=== PATIENT | female | born 1960 | race Two or more races ===

== ENCOUNTER 2020-02-18 19:28 | Emergency (ER) | payer MEDICAID ==
[~2020-02-18] VITALS: Ht 170.2 cm; Wt 68.0 kg
--- NOTE | 2020-02-18 19:30 | NUR ---
ED Nurse Note: Pt brought in by ambulance 826 from home c/o abd pain with n/v since few hrs ago. Pt stated she last ate cheese and pain, n/v occured shortly after. pt is moaning and guarding site. changed into gown; attached to monitor. patient ao4 with acute distress; facial grimacing from pain. vitals stable. all safety measures met.
--- NOTE | 2020-02-18 19:34 | Emergency Room Report ---
History of Present Illness General Chief Complaint: Abdominal Pain Source: Patient Present Illness HPI Patient is a 59-year-old female brought in by EMS after increased lower abdominal pain. Onset of symptoms few hours prior to arrival. Reports having severe pain did not radiate. Denies any allergies or past medical history. Think she may have had an food poisoning. Denies any fever. Denies any diarrhea. Denies any prior surgery. Reports having alcohol use earlier in the day. Denies prior episodes of similar pain in the past. Allergies: Coded Allergies: No Known Allergies (Unverified , 02/18/20) COVID-19 Screening Contact w/high risk pt: No Experienced COVID-19 symptoms?: No COVID-19 Testing performed EXHIBIT DISPLAY REPRESENTATIVE: No Patient History Past Medical History: see triage record Last Menstrual Period: unk Reviewed Nursing Documentation: PMH: Agreed; PSxH: Agreed Nursing Documentation-PMH Past Medical History: No Stated History Review of Systems All Other Systems: negative except mentioned in HPI Physical Exam Vital Signs Date Time Temp Pulse Resp B/P (MAP) Pulse Ox O2 Delivery O2 Flow Rate FiO2 02/18/20 19:25 98.8 70 22 136/78 (97) 99 Room Air Sp02 EP Interpretation: reviewed, normal General Appearance: normal inspection, alert, moderate distress Head: atraumatic ENT: normal ENT inspection, hearing grossly normal, normal voice Neck: normal inspection, full range of motion, supple, no bony tend Respiratory: normal inspection, lungs clear, normal breath sounds, no respiratory distress, no retraction, no wheezing Cardiovascular #1: regular rate, rhythm, no edema Gastrointestinal: normal inspection, normal bowel sounds, non tender, soft, no guarding, no hernia Genitourinary: no CVA tenderness Musculoskeletal: normal inspection, back normal, normal range of motion Neurologic: alert, responsive, speech normal, normal inspection Psychiatric: normal inspection, judgement/insight normal, mood/affect normal Medical Decision Making ER Course Patient presented for abdominal pain. Differential diagnoses included ischemic bowel, appendicitis, perforated viscus, abdominal aortic aneurysm, inferior myocardial infarction, viral gastroenteritis among others.Because patient's complexity imaging studies, and laboratory testing ordered. Laboratory testing showed . Electrolytes Lipase was White blood count was CT of the abdomen pelvis showed: Laboratory testing was unremarkable. Patient appears to have some slight urinary infection was given IV Rocephin. Last Vital Signs Date Time Temp Pulse Resp B/P (MAP) Pulse Ox O2 Delivery O2 Flow Rate FiO2 02/18/20 19:25 98.8 70 22 136/78 (97) 99 Room Air Emile Machado MD Feb 18, 2020 19:34
[2020-02-18 19:45] VITALS: BP 136/78
[2020-02-18] MEDS ORDERED: Dicyclomine HCl 10mg/5ml oral soln ORAL ONE (19:45)
[2020-02-18] MEDS ORDERED: Ketorolac 30mg Inj IV ONE (19:45)
[2020-02-18] MEDS ORDERED: Mylanta II UD 30ml ORAL ONE (19:45)
[2020-02-18] MEDS ORDERED: Lidocaine 2% Visc 15ml soln ORAL ONE (19:45)
[2020-02-18] MEDS ORDERED: Omnipaque-300 100ml vial INJ PRN (19:45)
--- NOTE | 2020-02-18 19:45 | NUR ---
ED Nurse Note: iv access established. blood and urine collected; sent down to lab.
[2020-02-18 20:10] LABS: BASOPHILS % (AUTO) 0.7 % (0.0-2.0); EOSINOPHILS % (AUTO) 0.6 % (0.0-3.0); HEMATOCRIT 44.4 % (37.0-47.0); LYMPHOCYTES % (AUTO) 33.4 % (20.0-45.0); MEAN CORPUSCULAR VOLUME 93 FL (80-99); MONOCYTES % (AUTO) 5.3 % (1.0-10.0); PLATELET COUNT 249 K/UL (150-450); RED BLOOD COUNT 4.77 M/UL (4.20-5.40); RED CELL DISTRIBUTION WIDTH 12.4 % (11.6-14.8); WHITE BLOOD COUNT 5.8 K/UL (4.8-10.8)
[2020-02-18 20:15] LABS: APPEARANCE,URINE CLEAR; BILIRUBIN, URINE NEGATIVE (NEGATIVE); GLUCOSE, URINE (UA) NEGATIVE (NEGATIVE); KETONES,URINE 3+ (NEGATIVE); LEUKOCYTE ESTERASE ,URINE 1+ (NEGATIVE); NITRITE,URINE NEGATIVE (NEGATIVE); PH,URINE 5 (4.5-8.0); PROTEIN,URINE NEGATIVE (NEGATIVE); UROBILINOGEN,URINE NORMAL MG/DL (0.0-1.0)
[2020-02-18 20:16] LABS: COLOR,URINE YELLOW
[2020-02-18 20:18] LABS: ANION GAP 13 mmol/L (5-15); BLOOD UREA NITROGEN 15 mg/dL (7-18); CALCIUM 9.9 MG/DL (8.5-10.1); CARBON DIOXIDE 25 MMOL/L (21-32); CHLORIDE 102 MMOL/L (98-107); CREATININE 0.8 MG/DL (0.55-1.30); POTASSIUM 3.6 MMOL/L (3.5-5.1); SODIUM 140 MMOL/L (136-145)
[2020-02-18 20:27] LABS: ALANINE AMINOTRANSFERASE 33 U/L (12-78); ALBUMIN 4.1 G/DL (3.4-5.0); ALBUMIN/GLOBULIN RATIO 1.2 (1.0-2.7); ALKALINE PHOSPHATASE 74 U/L (46-116); ASPARTATE AMINO TRANSFERASE 22 U/L (15-37); BILIRUBIN,TOTAL 0.9 MG/DL (0.2-1.0)
--- NOTE | 2020-02-18 20:39 | NUR ---
ED Nurse Note: pt down to imaging via wheelchair with technology training associate.
[2020-02-18] MEDS ORDERED: cefTRIAXone 1 GM in NS 55 ML IVPB ONE (20:45)
--- NOTE | 2020-02-18 20:58 | NUR ---
ED Nurse Note: pt back from ct via wheelchair. reattached to monitor. initiated prescribed infusion; pt tolerating well. pt reports decrease of pain post analgesic admin.
--- NOTE | 2020-02-18 21:12 | Diagnostic Imaging Report ---
EXAM: CT Abdomen and Pelvis With Intravenous Contrast CLINICAL HISTORY: ABD PAIN TECHNIQUE: Axial computed tomography images of the abdomen and pelvis with intravenous contrast. CTDI is 4.2 mGy and DLP is 215.0 mGy-cm. One or more of the following dose reduction techniques were used: automated exposure control, adjustment of the mA and/or kV according to patient size, use of iterative reconstruction technique. COMPARISON: No relevant prior studies available. FINDINGS: Lung bases: Unremarkable. No mass. No consolidation. ABDOMEN: Liver: Unremarkable. No mass. Gallbladder and bile ducts: Unremarkable. No calcified stones. No ductal dilation. Pancreas: Unremarkable. No mass. No ductal dilation. Spleen: Unremarkable. No splenomegaly. Adrenals: Unremarkable. No mass. Kidneys and ureters: Unremarkable. No solid mass. No hydronephrosis. Stomach and bowel: large amount of retained stool throughout the colon. Negative for lower GI tract obstruction, pneumatosis or focal bowel wall thickening. PELVIS: Appendix: The appendix was not visualized. Bladder: Unremarkable. No mass. Reproductive: Unremarkable as visualized. ABDOMEN and PELVIS: Intraperitoneal space: Unremarkable. No free air. No significant fluid collection. Bones/joints: No acute fracture. No dislocation. Soft tissues: Unremarkable. Vasculature: Unremarkable. No abdominal aortic aneurysm. Lymph nodes: Unremarkable. No enlarged lymph nodes. IMPRESSION: Constipation
[2020-02-18] MEDS ORDERED: FLEET ENEMA133 ML RECTAL (21:42)
[2020-02-18 21:45] VITALS: BP 122/73
--- NOTE | 2020-02-18 21:45 | NUR ---
ER DISCHARGE NOTE: Patient is cleared to be discharged per ERMD, pt is aox4, on room air, with stable vital signs. pt was given dc and prescription instructions, pt was able to verbalize understanding, pt id band and iv site removed without complications. pt is able to ambulate with steady gait. pt took all belongings.
== END 2020-02-18 21:45 | disposition home or self-care (01) ==
LOC: EDBD 19:28 → EMR 19:58
DX: R10.30 Lower abdominal pain, unspecified (principal)
CPT/HCPCS: 36415; 74177; 80053; 80307; 81003; 83690; 84484; 85025; 85610; 85730; 96365; 96375; G0480; J0696; J1885; J2405; Q9965; Z7502; 99284